=== PATIENT | female | born 1980 | race Caucasian/White ===

== ENCOUNTER 2017-01-02 11:16 | Day surgery (SDC) | payer OTHER ==
[~2017-01-02 11:16] MED LIST: NORMAL SALINE 1,000 ML IV PRN
--- OUTSIDE RECORDS SUMMARY | 2017-01-02 11:22 | XMS REPORT | Continuity of Care Document ---
:1980 Author Organization [facility] ([facility]) Address [address] [place] [address] Phone [phone] Care Team Providers Name Role Phone Mani Vargas Primary Care Provider [phone] Source Comments This disclosure is being made pursuant to the Care Everywhere program, applicable federal and state laws, and may not contain all informaitonavailable regarding this patient.[facility] ([facility]) Active Allergies and Adverse Reactions No Known Allergies Current Medications Not on file Active Problems Not on file Social History Tobacco Use Types Packs/Day Years Used Date Never Assessed Last Filed Vital Signs Vital Sign Reading Time Taken Blood Pressure 120/62 06/28/2006 1:23 PM CDT Pulse 59 06/28/2006 1:23 PM CDT Temperature 36.4 C (97.52 F) 06/28/2006 1:23 PM CDT Respiratory Rate - - Height 1.64 m (5' 4.56") 06/28/2006 1:23 PM CDT Weight 106.999 kg (235 lb 14.2 oz) 06/28/2006 1:23 PM CDT Body Mass Index 39.78 06/28/2006 1:23 PM CDT Oxygen Saturation - - Plan of Care Health Maintenance Due Date Last Done Comments Hepatitis B Vaccine (1 of 3 - Primary Series) 1980 Tdap Vaccine 1991 Lipid Disorder Screening 1998 MMR Vaccine 1998 Td Vaccine 1998 Varicella Vaccine (1 of 2 - Adult - No Evidence of 1998 Immunity) Cervical Cancer Screening 2010 Influenza Vaccine: Seasonal (#1) 06/04/2016 Results from Last 3 Months Not on file
[2017-01-02] MEDS ORDERED: NORMAL SALINE 1,000 ML IV ONE (13:17)
--- NOTE | 2017-01-02 14:15 | OR ---
Operative Report - Dictated Report Narrative: Location: Main OR Anesthesia: General Preoperative diagnosis: Left lower pole stone(s) Postoperative diagnosis: same Procedure: #1 left ESWL Indications: 36-year-old female with vague left-sided symptomatology. Recent KUB confirms significant stone collection in the lower pole. Discussed options and elected to proceed with above-mentioned procedure. Procedure: Consent obtained. Risks discussed. Brought to the operating room where general endotracheal anesthesia was induced. Timeout taken per protocol. Fluoroscopy was used to localize the stones in 2 planes. A total of 3000 shocks were delivered at a maximal energy of 24 kV. Stone was easily visible at the beginning of the case. There was radiographic evidence of fragmentation at the conclusion of the case. EBL: 0 cc Specimen: None Condition: Patient tolerated Important findings: Radiographic evidence of fragmentation during ESWL. Per discussion I did not placed stent. Normally she is able to pass some fragments. Follow Up: I will see her in 6 months with KUB/UA. Obviously I will see her sooner if fevers chills, unbearable flank pain, gross hematuria, nausea vomiting.
[2017-01-02 15:40] VITALS: BP 132/92
== END 2017-01-02 11:17 | disposition home or self-care (01) ==
LOC: AMB 11:16
PROVIDERS: ATTEND Urology
PROC: 0TF4XZZ Fragmentation in Left Kidney Pelvis, External Approach (ICD-10-PCS; principal; 2017-01-02 13:00)
DX: N20.0 Calculus of kidney (principal); E66.01 Morbid (severe) obesity due to excess calories; Z68.45 Body mass index [BMI] 70 or greater, adult

== ENCOUNTER 2017-07-30 08:32 | Emergency (ER) | payer OTHER ==
[2017-07-30] MEDS ORDERED: ONDANSETRON HCL/PF 2 MG/ML VIAL IV ONE (08:46)
[2017-07-30] MEDS ORDERED: NORMAL SALINE 1,000 ML IV ONE (08:46)
[2017-07-30] MEDS ORDERED: KETOROLAC TROMETHAMINE 30 MG/ML VIAL IV ONE (08:46)
[2017-07-30] MEDS ORDERED: HYDROmorphone HCL 1 MG/ML DISP.SYRIN IV ONE (08:47)
[2017-07-30] MEDS ORDERED: ONDANSETRON HCL/PF 2 MG/ML VIAL ONE (09:06)
[2017-07-30] MEDS ORDERED: KETOROLAC TROMETHAMINE 30 MG/ML VIAL ONE (09:06)
[2017-07-30 09:26] LABS: Urine Appearance Slightly Cloudy; Urine Bacteria None Seen; Urine Bilirubin Negative (NEGATIVE); Urine Blood 250 /ul (NEGATIVE); Urine Color Yellow; Urine Ketone Negative (NEGATIVE); Urine Nitrite Negative (NEGATIVE); Urine Protein Negative (NEGATIVE); Urine RBC 25-50 /hpf (0-5); Urine Specific Gravity 1.015 SP.GR. (1.005-1.010); Urine Urobilinogen Normal (NORMAL); Urine WBC None Seen /hpf (0-5)
[2017-07-30] MEDS ORDERED: HYDROmorphone HCL 1 MG/ML DISP.SYRIN ONE (09:35)
[2017-07-30 10:37] VITALS: BP 133/93
--- NOTE | 2017-07-30 10:39 | ERNOTE ---
Back Pain ER HPI Date of Service: 07/30/17 Time Seen by Provider: 07/30/17 08:38 Source: patient Exam Limitations: no limitations Immunizations: IMMUNIZATION HX Immunizations Up to Date Yes History of Influenza Vaccine No Hx Pneumococcal Vaccination No Allergies/Adverse Reactions: Allergies No Known Allergies Allergy (Verified 01/02/17 11:36) Home Medications: HOME MEDICATIONS Hydrochlorothiazide [Hydrodiuril] 25 mg PO DAILY 06/06/14 [Last Taken Unknown] Medroxyprogesterone Acetate [Depo-Provera Contraceptive] 150 mg IM Q90D [Last Taken Unknown] Cefuroxime Axetil [Ceftin] 250 mg PO Q12H #6 tab 07/30/17 [Last Taken Unknown] HYDROcodone/ACETAMINOPHEN [[place] 5-325] 1 tab PO Q6H PRN #15 tab 07/30/17 [Last Taken Unknown] Tamsulosin HCl [Flomax] 0.4 mg PO DAILY #7 cap 07/30/17 [Last Taken Unknown] Narrative: Patient presents with complaints of kidney stone. She relates that she has had multiple kidney stones in the past. She relates that her Sx started yesterday. Left sided flank pain. No vomiting but nausea. Severe pain. nothing makes this better or worse. Has not seen anyone else for it. No CP or SOB. No abdominal pain. no fever or dysuria. Timing: Reports: constant Quality/Severity: Reports: severe Location of pain: Reports: other - left flank Activities at Onset: Reports: none Recent Injury?: Reports: no Possible Precipitating Factor: Reports: none Modifying Factors - (Improves): Reports: other - nothing Modifying Factors - (Worsens): Reports: other - nothing Associated Symptoms: Denies: fever/chills, nausea/vomiting, numbess/weakness in legs Prior Treament: Denies: recently seen Review of Systems - Review of Systems Constitutional: Absent: fever Respiratory: Absent: shortness of breath Cardiology: Absent: chest pain Gastrointestinal/Abdominal: Present: nausea. Absent: abdominal pain Genitourinary: Absent: dysuria All Other Systems: All systems neg except as marked - Patient's Past Medical History Patient History - Medical: Anxiety, Kidney stone Patient History - Cardiac/Respiratory: No pertinent hx Patient History - Cancer: No Hx of Cancer Patient History - Surgical Procedures: , Tubal Ligation, Hernia Repair , Urology Patient History - Other: None LMP (females 10-50): last week - Family History Mother Family History - Medical: No pertinent hx Family History - Cardiac/Respiratory: No pertinent hx Family History - Cancer: No pertinent family hx - Social History Living Situations: home Abuse History: No History of abuse Psych History: Hx of Anxiety Smoking Status: Never smoker Alcohol Use: none Drug Use: none - Immunizations Immunizations Up to Date: Yes Hx Pneumococcal Vaccination: No History of Influenza Vaccine: No Physical Exam - Physical Exam General Appearance: Present: alert, no apparent distress Head Exam: Present: normal inspection, no evidence of injury Eye Exam: Normal inspection: bilateral, PERRL: bilateral Ears, Nose, Throat: Present: normal ENT inspection Neck: Present: normal inspection Respiratory: Present: no respiratory distress, normal breath sounds, lungs clear Cardiovascular/Chest: Present: regular rate, rhythm Gastrointestinal/Abdominal: Present: normal bowel sounds, nontender, soft Back Exam: Present: CVA tenderness (L) Extremity Exam: Present: normal inspection Neurological Exam: Present: alert, normal mood/affect, no motor/sensory deficits Skin Exam: Present: normal color, warm/dry ED Progress - Results and Orders Patient's Lab Results:: I have reviewed the patient's lab results. - Vital Signs Patient's Vital Signs:: I have reviewed the patient's vital signs. Vital Signs: Vital Signs 07/30/17 07/30/17 08:39 09:38 Temperature 36.3 C L Pulse Rate 70 68 Respiratory 16 16 Rate Blood Pressure 142/92 141/90 O2 Sat by Pulse 96 96 Oximetry - CT/Ultrasound CT/Ultrasound Narrative: I reviewed the CT report abdomen/Pelvis per radiology - Progress/Reassessment Chief Complaint: Back Pain Progress Note-Subjective: 07/30/17 10:34 Patient given IV fluids and meds. I recommeded she be transferred to Urology. She refuses this. She understands risks and benefits. Given this will sign out AMA. No suggestion of UTI or sepsis. Departure Clinical Impression: Kidney stone - Departure Disposition: Against medical advice Condition: Stable Instructions: Renal Colic, [id number] Additional Instructions: You are leaving against medical advise. Return if you change your mind about seeing a urologist. Take medications as directed. No driving while taking pain medications. Return if your condition worsens or changes in any way. Referrals: Neha Garcia ARNP [Primary Care Provider] - Prescriptions: Cefuroxime Axetil [Ceftin] 250 mg PO Q12H #6 tab HYDROcodone/ACETAMINOPHEN [[place] 5-325] 1 tab PO Q6H PRN #15 tab PRN Reason: Pain Tamsulosin HCl [Flomax] 0.4 mg PO DAILY #7 cap
== END 2017-07-30 10:41 | disposition left against medical advice (07) ==
LOC: ER 08:32
DX: N20.0 Calculus of kidney (principal); Z87.442 Personal history of urinary calculi; Z53.29 Procedure and treatment not carried out because of patient's decision for other reasons
CPT/HCPCS: 74176; 81001; 84703; 96374; 96375; 99284; J2405

== ENCOUNTER 2017-09-14 12:02 | Emergency (ER) | payer OTHER ==
[2017-09-14 12:42] LABS: Urine Appearance Clear; Urine Bilirubin Negative (NEGATIVE); Urine Blood 25 /ul (NEGATIVE); Urine Color Yellow; Urine Ketone Negative (NEGATIVE); Urine Nitrite Negative (NEGATIVE); Urine Protein Negative (NEGATIVE); Urine Urobilinogen Normal (NORMAL); Urine WBC 0-5 /hpf (0-5)
[2017-09-14 12:43] LABS: Urine Bacteria None Seen; Urine RBC 0-5 /hpf (0-5)
[2017-09-14] MEDS ORDERED: ONDANSETRON 4 MG TAB.RAPDIS PO ONE (12:49)
[2017-09-14] MEDS ORDERED: KETOROLAC TROMETHAMINE 60 MG/2 ML VIAL IM ONE ×2 (12:49→12:51)
[2017-09-14] MEDS ORDERED: ONDANSETRON 4 MG TAB.RAPDIS ONE (12:51)
--- NOTE | 2017-09-14 13:52 | ERNOTE ---
Back Pain ER HPI Presenting Symptoms: other - recurrent kidney stones Time Seen by Provider: 09/14/17 12:40 Source: patient Exam Limitations: no limitations Immunizations: IMMUNIZATION HX Immunizations Up to Date Yes History of Influenza Vaccine No Hx Pneumococcal Vaccination No Allergies/Adverse Reactions: Allergies No Known Allergies Allergy (Verified 01/02/17 11:36) Home Medications: HOME MEDICATIONS Hydrochlorothiazide [Hydrodiuril] 25 mg PO DAILY 06/06/14 [Last Taken Unknown] Medroxyprogesterone Acetate [Depo-Provera Contraceptive] 150 mg IM Q90D [Last Taken Unknown] HYDROcodone/ACETAMINOPHEN [Gaastra 5-325] 1 each PO Q4H #20 tablet 09/14/17 [Last Taken Unknown] Ondansetron [Zofran Odt] 4 mg PO Q6H PRN #10 tab 09/14/17 [Last Taken Unknown] Tamsulosin HCl [Flomax] 0.4 mg PO DAILY@1800 #7 capsule 09/14/17 [Last Taken Unknown] Narrative: Patient believes that she is either passed or is in the process of passing another kidney stone. His have multiple kidney stones on the right and the symptoms are very similar to what her previous symptoms were. She rates the pain is at least moderate in severity and has mild nausea with it as well. Timing: Reports: constant, intermittent Quality/Severity: Reports: moderate Location of pain: Reports: other - right flank that radiates down to the right lower abdomen Activities at Onset: Reports: none Recent Injury?: Reports: no Possible Precipitating Factor: Reports: none Modifying Factors - (Improves): Reports: nothing Modifying Factors - (Worsens): Reports: nothing Associated Symptoms: Reports: none Prior Treament: Reports: recently seen, treated by physician, similar symptoms before - with kidney stones Review of Systems - Review of Systems Constitutional: Present: See HPI EYE: Present: no symptoms reported ENT: Present: no symptoms reported Respiratory: Present: no symptoms reported Cardiology: Present: no symptoms reported Gastrointestinal/Abdominal: Present: nausea Genitourinary: Present: other - right flank pain Musculoskeletal: Present: no symptoms reported Skin: Present: no symptoms reported Neurological: Present: no symptoms reported Endocrine: Present: no symptoms reported Hematologic/Lymphatic: Present: no symptoms reported Psych: Present: no symptoms reported - Patient's Past Medical History Patient History - Medical: Anxiety, Kidney stone Patient History - Cardiac/Respiratory: No pertinent hx Patient History - Cancer: No Hx of Cancer Patient History - Surgical Procedures: , Tubal Ligation, Hernia Repair , Urology Patient History - Other: None LMP (females 10-50): depo - Family History Mother Family History - Medical: No pertinent hx Family History - Cardiac/Respiratory: No pertinent hx Family History - Cancer: No pertinent family hx - Social History Living Situations: spouse Abuse History: No History of abuse Psych History: Hx of Anxiety Smoking Status: Never smoker Have you smoked in the past 12 months: No Do you dip or chew tobacco: No Alcohol Use: none Drug Use: none - Immunizations Immunizations Up to Date: Yes Hx Pneumococcal Vaccination: No History of Influenza Vaccine: No Physical Exam - Physical Exam General Appearance: Present: wd/wn, alert, moderate distress Head Exam: Present: normal inspection Eye Exam: Normal inspection: bilateral, PERRL: bilateral Ears, Nose, Throat: Present: normal ENT inspection, H, normal pharynx Neck: Present: normal inspection, nontender Respiratory: Present: no respiratory distress, normal breath sounds, no accessory muscle use, chest nontender, lungs clear Cardiovascular/Chest: Present: regular rate, rhythm, no murmur, normal peripheral pulses Gastrointestinal/Abdominal: Present: normal bowel sounds, nontender, nondistended, soft, no organomegaly Rectal Exam: Present: deferred Back Exam: Present: normal range of motion, CVA tenderness (R) Extremity Exam: Present: normal inspection, non-tender, no edema, normal range of motion Neurological Exam: Present: alert, oriented, normal mood/affect Skin Exam: Present: normal color, warm/dry Lymphatic Exam: Present: no adenopathy ED Progress - Results and Orders Patient's Lab Results:: I have reviewed the patient's lab results. - Vital Signs Patient's Vital Signs:: I have reviewed the patient's vital signs. Vital Signs: Vital Signs 09/14/17 09/14/17 12:06 12:48 Temperature 36.7 C Pulse Rate 77 72 Respiratory 14 16 Rate Blood Pressure 151/95 139/74 O2 Sat by Pulse 98 98 Oximetry - CT/Ultrasound CT/Ultrasound Narrative: CT of the abdomen and pelvis was reviewed by me - Progress/Reassessment Chief Complaint: Back Pain Progress:: Improved Plan - Plan Plan: Patient has had frequent trips to the urology office because of multiple kidney stones and she agrees to call them Saturday morning. Patient will be started on Flomax, Gaastra and Zofran and she is discharged in stable condition. Pain is improved Departure Clinical Impression: Kidney stone, Renal colic on right side - Departure Disposition: Home self-care Condition: Good Instructions: Renal Colic, [id number], Kidney Stones, [id number] Referrals: Neha Garcia ARNP [Primary Care Provider] - Prescriptions: HYDROcodone/ACETAMINOPHEN [Gaastra 5-325] 1 each PO Q4H #20 tablet Ondansetron [Zofran Odt] 4 mg PO Q6H PRN #10 tab PRN Reason: Nausea And Vomiting Tamsulosin HCl [Flomax] 0.4 mg PO DAILY@1800 #7 capsule
[2017-09-14 13:53] VITALS: BP 119/68
== END 2017-09-14 13:58 | disposition home or self-care (01) ==
LOC: ER 12:02
DX: N20.0 Calculus of kidney (principal); Z87.442 Personal history of urinary calculi